=== PATIENT | female | born 1990 | race Caucasian/White ===

== ENCOUNTER 2016-10-05 13:11 | Emergency (ER) | payer OTHER, MEDICAID ==
[2016-10-05] MEDS ORDERED: NORMAL SALINE 1000 ML 1,000 ML IV ONE (13:57)
--- NOTE | 2016-10-05 13:57 | ER Document Report ---
ED Medical Screen (RME) - General Chief Complaint: Abdominal Cramping Stated Complaint: ABDOMINAL PAIN Time Seen by Provider: 10/05/16 13:54 Mode of Arrival: Ambulatory - pt is 14 weeks and recently had normal U/ S. Today developed sharp,stabbing lower abdominal pain Information source: Patient, Parent TRAVEL OUTSIDE OF THE U.S. IN LAST 30 DAYS: No - Related Data Allergies/Adverse Reactions: aspirin [Aspirin] Allergy (Severe, Verified 10/05/16 13:19) hydrocodone bitartrate [From Vicodin] Allergy (Verified 10/05/16 13:19) Past Medical History - Social History Family history: Reviewed & Not Pertinent Renal/ Medical History: Reports: Hx Kidney Stones. Denies: Hx Peritoneal Dialysis Musculoskeltal Medical History: Reports Hx Arthritis, Reports Hx Musculoskeletal Trauma Traumatic Medical History: Reports: Hx Fractures - Nose kneecap hand and finger Past Surgical History: Reports: Hx Adenoidectomy, Hx Oral Surgery - [place] teeth , Hx Tonsillectomy - Immunizations Hx Diphtheria, Pertussis, Tetanus Vaccination: No Physical Exam - Vital signs Vitals: Temp Pulse Resp BP Pulse Ox 97.9 F 100 18 139/75 H 100 10/05/16 13:16 10/05/16 13:16 10/05/16 13:16 10/05/16 13:16 10/05/16 13:16 Course - Vital Signs Vital signs: Temp Pulse Resp BP Pulse Ox 97.9 F 100 18 139/75 H 100 10/05/16 13:16 10/05/16 13:16 10/05/16 13:16 10/05/16 13:16 10/05/16 13:16
[2016-10-05 15:14] LABS: APPEARANCE,URINE SLIGHTLY-CLOUDY; BILIRUBIN,URINE NEGATIVE (NEGATIVE); CALCIUM OXALATE CRYSTALS,URINE MANY /HPF; GLUCOSE, URINE NEGATIVE (NEGATIVE); KETONES,URINE NEGATIVE (NEGATIVE); LEUKOCYTE ESTERASE,URINE NEGATIVE (NEGATIVE); NITRITE,URINE NEGATIVE (NEGATIVE); PROTEIN,URINE 30 mg/dL (NEGATIVE); URINE SPECIFIC GRAVITY 1.027
[2016-10-05 15:18] LABS: ABSOLUTE EOSINOPHILS # (AUTO) 0.1 10^3/uL (0.0-0.6); ABSOLUTE MONOCYTES (AUTO) 0.6 10^3/uL (0.1-1.4); ABSOLUTE NEUT (AUTO) 8.5 10^3/uL (1.7-8.2); BASOPHILS % (AUTO) 0.4 % (0-2); EOSINOPHILS % (AUTO) 0.6 % (0-6); HEMATOCRIT 40.8 % (36.0-47.0); HGB HCT DIFFERENCE 1.2; LYMPHOCYTES % (AUTO) 17.7 % (13-45); MEAN CORPUSCULAR HEMOGLOBIN 31.2 pg (27.0-33.4); MEAN CORPUSCULAR HGB CONC 34.3 g/dL (32.0-36.0); MEAN CORPUSCULAR VOLUME 91 fl (80-97); MONOCYTES % (AUTO) 5.6 % (3-13); RED BLOOD COUNT 4.47 10^6/uL (3.72-5.28); RED CELL DISTRIBUTION WIDTH 13.4 % (11.5-14.0); SEGMENTED NEUTROPHILS % (AUTO) 75.7 % (42-78); WHITE BLOOD COUNT 11.3 10^3/uL (4.0-10.5)
[2016-10-05 15:24] LABS: ALANINE AMINOTRANSFERASE 21 U/L (9-52); ALBUMIN 4.3 g/dL (3.5-5.0); ALKALINE PHOSPHATASE 63 U/L (38-126); ANION GAP 12 (5-19); ASPARTATE AMINO TRANSFERASE 22 U/L (14-36); BILIRUBIN,DIRECT 0.3 mg/dL (0.0-0.4); BILIRUBIN,TOTAL 0.6 mg/dL (0.2-1.3); BLOOD UREA NITROGEN 7 mg/dL (7-20); CALCIUM 9.8 mg/dL (8.4-10.2); CARBON DIOXIDE 24 mmol/L (22-30); CHLORIDE 105 mmol/L (98-107); CREATININE RESULT 0.47 mg/dL (0.52-1.25); GLUCOSE 83 mg/dL (75-110); SODIUM 141.4 mmol/L (137-145); TOTAL PROTEIN 7.6 g/dL (6.3-8.2)
--- NOTE | 2016-10-05 17:06 | ER Document Report ---
HPI - HPI Patient complains to provider of: Pelvic cramping Onset: This afternoon Onset/Duration: Gone Quality of pain: No pain Pain Level: Denies Context: Patient states that she had nausea and vomiting 1 episode this afternoon with lower pelvic cramping. Patient states that presently the cramping has resolved as well as the nausea. Patient is currently 14 weeks . Patient additionally reports that she finished Macrobid yesterday to treat the UTI. Patient denies any current urinary symptoms. Patient denies any vaginal bleeding or discharge Associated Symptoms: Nausea, Vomiting Exacerbated by: Denies Relieved by: Denies Similar symptoms previously: No Recently seen / treated by doctor: Yes - ROS ROS below otherwise negative: Yes Systems Reviewed and Negative: Yes All other systems reviewed and negative - CONSTITUTIONAL Constitutional: DENIES: Fever, Chills - NEURO Neurology: DENIES: Headache - CARDIOVASCULAR Cardiovascular: DENIES: Chest pain - GASTROINTESTINAL Gastrointestinal: REPORTS: Abdominal Pain - Resolved, Nausea, Patient vomiting. DENIES: Diarrhea - URINARY Urinary: DENIES: Dysuria, Urgency, Frequency - REPRODUCTIVE Reproductive: REPORTS: :. DENIES: Abnormal bleeding / discharge - MUSCULOSKELETAL Musculoskeletal: DENIES: Back Pain, Neck Pain - DERM Skin Color: Normal Skin Problems: None Past Medical History - General Information source: Patient, Parent - Social History Smoking Status: Never Smoker Frequency of alcohol use: None Drug Abuse: None Occupation: retail Lives with: Family Family History: Arthritis, CAD, COPD, CVA, DM, Hyperlipidemia, Hypertension, Malignancy Patient has suicidal ideation: No Patient has homicidal ideation: No - Past Medical History Cardiac Medical History: Reports: Other - orthopedic intolerance Renal/ Medical History: Reports: Hx Kidney Stones. Denies: Hx Peritoneal Dialysis Musculoskeltal Medical History: Reports Hx Arthritis, Reports Hx Musculoskeletal Trauma Traumatic Medical History: Reports: Hx Fractures - Nose kneecap hand and finger Past Surgical History: Reports: Hx Adenoidectomy, Hx Oral Surgery - [place] teeth , Hx Tonsillectomy - Immunizations Hx Diphtheria, Pertussis, Tetanus Vaccination: No Vertical Provider Document - CONSTITUTIONAL Agree With Documented VS: Yes General Appearance: WD/WN, No Apparent Distress - INFECTION CONTROL TRAVEL OUTSIDE OF THE [place].S. IN LAST 30 DAYS: No - HEENT HEENT: Atraumatic, Normocephalic - NECK Neck: Normal Inspection, Supple. negative: Lymphadenopathy-Left, Lymphadenopathy-Right - RESPIRATORY Respiratory: Breath Sounds Normal, No Respiratory Distress, Chest Non-Tender O2 Sat by Pulse Oximetry: 100 - CARDIOVASCULAR Cardiovascular: Regular Rate, Regular Rhythm, No Murmur - GI/ABDOMEN Gastrointestinal: Abdomen Soft, Abdomen Non-Tender, No Organomegaly - BACK Back: Normal Inspection. negative: CVA Tenderness-Right, CVA Tenderness-Left - MUSCULOSKELETAL/EXTREMETIES Musculoskeletal/Extremeties: MAEW, FROM - NEURO Level of Consciousness: Awake, Alert, Appropriate Motor/Sensory: No Motor Deficit - DERM Integumentary: Warm, Dry, No Rash Course - Re-evaluation Re-evalutation: 10/05/16 17:[address] Raymond regarding patient presentation and diagnostic test results. Agrees with plan to culture urine, does not recommend treating urine results with any antibiotic at this time. Patient denies any pain or nausea at this time. Discussed good return precautions with patient. Patient verbalized understanding and agrees with plan of care. - Vital Signs Vital signs: Temp Pulse Resp BP Pulse Ox 97.9 F 100 20 139/75 H 100 10/05/16 13:16 10/05/16 13:16 10/05/16 16:46 10/05/16 13:16 10/05/16 13:16 - Laboratory Result Diagrams: 10/05/16 14:35 10/05/16 14:35 Laboratory results interpreted by me: 10/05/16 10/05/16 10/05/16 14:00 14:35 14:35 WBC 11.3 H Absolute Neutrophils 8.5 H Creatinine 0.47 L Beta HCG, Quant 42500.00 H Urine Protein 30 H Urine Blood SMALL H Urine Urobilinogen 4.0 H 10/05/16 17:12 Labs- Entire Visit 10/05/16 10/05/16 10/05/16 14:00 14:35 14:35 WBC 11.3 H RBC 4.47 Hgb 14.0 Hct 40.8 MCV 91 MCH 31.2 MCHC 34.3 RDW 13.4 Plt Count 238 Seg Neutrophils % 75.7 Lymphocytes % 17.7 Monocytes % 5.6 Eosinophils % 0.6 Basophils % 0.4 Absolute Neutrophils 8.5 H Absolute Lymphocytes 2.0 Absolute Monocytes 0.6 Absolute Eosinophils 0.1 Absolute Basophils 0.0 Sodium 141.4 Potassium 4.0 Chloride 105 Carbon Dioxide 24 Anion Gap 12 BUN 7 Creatinine 0.47 L Est GFR ( Amer) > 60 Est GFR (Non-Af Amer) > 60 Glucose 83 Calcium 9.8 Total Bilirubin 0.6 Direct Bilirubin 0.3 Indirect Bilirubin Not Reportable Neonat Total Bilirubin Not Reportable AST 22 ALT 21 Alkaline Phosphatase 63 Total Protein 7.6 Albumin 4.3 Beta HCG, Quant 34776.00 H Total Beta HCG POSITIVE Urine Color YELLOW Urine Appearance SLIGHTLY-CLOUDY Urine pH 6.0 Ur Specific [place] 1.027 Urine Protein 30 H Urine Glucose (UA) NEGATIVE Urine Ketones NEGATIVE Urine Blood SMALL H Urine Nitrite NEGATIVE Urine Bilirubin NEGATIVE Urine Urobilinogen 4.0 H Ur Leukocyte Esterase NEGATIVE Urine WBC (Auto) 3 Urine RBC (Auto) 4 Urine Bacteria (Auto) TRACE Squamous Epi Cells Auto 1 Calcium Oxalate Cr Auto MANY Urine Mucus (Auto) MOD Urine Ascorbic Acid NEGATIVE 10/05/16 18:20 - Diagnostic Test Radiology reviewed: Reports reviewed Discharge - Discharge Clinical Impression: Intrauterine , pelvic cramping-resolved Condition: Stable Disposition: HOME, SELF-CARE Instructions: Pelvic Pain in ([facility]), Nausea or Vomiting, Nonspecific ( [facility]) Additional Instructions: Return immediately for any new or worsening symptoms Followup with your primary care provider, call tomorrow to make a followup appointment Increase oral fluids Take Benadryl [id number] to help with nausea symptoms Urine cultures are pending, we will call if you need any different treatment Follow-up with your MECHANICAL SERVICE REPRESENTATIVE for recheck on Friday Forms: Return to Work Referrals: CHARISMA VERA MD [Primary Care Provider] - 10/07/16
[2016-10-05 17:33] VITALS: BP 116/66
== END 2016-10-05 17:32 | disposition home or self-care (01) ==
LOC: ER 13:11
DX: O26.892 Other specified pregnancy related conditions, second trimester (principal); R10.2 Pelvic and perineal pain; O21.9 Vomiting of pregnancy, unspecified; Z3A.14 14 weeks gestation of pregnancy; Z87.440 Personal history of urinary (tract) infections; Z87.442 Personal history of urinary calculi
CPT/HCPCS: 99284; 36415; 87086; 84702; 85025; 80053; 81001; 76805; J7030

== ENCOUNTER 2016-11-18 16:39 | Emergency (ER) | payer OTHER, MEDICAID ==
[2016-11-18] MEDS ORDERED: ACETAMINOPHEN 325 MG TABLET PO ONE (18:16)
--- NOTE | 2016-11-18 18:18 | ER Document Report ---
ED Medical Screen (RME) - General Chief Complaint: Vaginal Pain Stated Complaint: VAGINAL PAIN Time Seen by Provider: 11/18/16 18:14 Notes: There is a 26-year-old female, , 20 weeks , presents with right groin pain into her vagina after her dogs began to fight and she fell on her right hip. She is having pain that is worse when she extends her hip and is now present when she is at rest. She denies leakage of fluid, vaginal bleeding , dysuria, LOC or flank pain. PE: Non-tender abdomen. Painful right hip extension. I have greeted and performed a rapid initial assessment of this patient. A comprehensive ED assessment and evaluation of the patient, analysis of test results and completion of the medical decision making process will be conducted by additional ED providers. TRAVEL OUTSIDE OF THE U.S. IN LAST 30 DAYS: No - Related Data Allergies/Adverse Reactions: aspirin [Aspirin] Allergy (Severe, Verified 11/18/16 16:43) hydrocodone bitartrate [From Vicodin] Allergy (Verified 11/18/16 16:43) Past Medical History - General Last Menstrual Period: 06/28/16 - Social History Family history: Reviewed & Not Pertinent Renal/ Medical History: Reports: Hx Kidney Stones. Denies: Hx Peritoneal Dialysis Musculoskeltal Medical History: Reports Hx Arthritis, Reports Hx Musculoskeletal Trauma Traumatic Medical History: Reports: Hx Fractures - Nose kneecap hand and finger Past Surgical History: Reports: Hx Adenoidectomy, Hx Oral Surgery - [place] teeth , Hx Tonsillectomy - Immunizations Hx Diphtheria, Pertussis, Tetanus Vaccination: No Physical Exam - Vital signs Vitals: Temp Pulse Resp BP Pulse Ox 98.6 F 99 20 128/75 H 99 11/18/16 16:43 11/18/16 16:43 11/18/16 16:43 11/18/16 16:43 11/18/16 16:43 Course - Vital Signs Vital signs: Temp Pulse Resp BP Pulse Ox 98.6 F 99 20 128/75 H 99 11/18/16 16:43 11/18/16 16:43 11/18/16 16:43 11/18/16 16:43 11/18/16 16:43
[2016-11-18 18:53] LABS: AMORPHOUS SEDIMENT,URINE TRACE /HPF; APPEARANCE,URINE CLOUDY; BILIRUBIN,URINE NEGATIVE (NEGATIVE); GLUCOSE, URINE NEGATIVE (NEGATIVE); KETONES,URINE NEGATIVE (NEGATIVE); LEUKOCYTE ESTERASE,URINE SMALL (NEGATIVE); NITRITE,URINE NEGATIVE (NEGATIVE); PROTEIN,URINE 30 mg/dL (NEGATIVE); URINE SPECIFIC GRAVITY 1.019
--- NOTE | 2016-11-18 20:09 | ER Document Report ---
ED General - General Chief Complaint: Vaginal Pain Stated Complaint: VAGINAL PAIN Time Seen by Provider: 11/18/16 18:14 Notes: Patient is a 26-year-old female, at 20 weeks gestation by first trimester ultrasound, the [facility] emergency department for chief complaint of pain in her right groin, hip, lower abdomen area. She states she slipped in the mud and landed on her right hip/thigh, she was trying to break up a dog fight. She denies vaginal bleeding, discharge, vomiting, focal numbness or weakness, incontinence. She is still feeling baby moving. She is on vitamins, follows with [facility]. TRAVEL OUTSIDE OF THE [place] IN LAST 30 DAYS: No - Related Data Allergies/Adverse Reactions: aspirin [Aspirin] Allergy (Severe, Verified 11/18/16 16:43) hydrocodone bitartrate [From Vicodin] Allergy (Verified 11/18/16 16:43) Past Medical History - General Information source: Patient Last Menstrual Period: 06/28/16 - Social History Smoking Status: Never Smoker Chew tobacco use (# tins/day): No Frequency of alcohol use: None Drug Abuse: None Lives with: Family Family History: Arthritis, CAD, COPD, CVA, DM, Hyperlipidemia, Hypertension, Malignancy Patient has suicidal ideation: No Patient has homicidal ideation: No Renal/ Medical History: Reports: Hx Kidney Stones. Denies: Hx Peritoneal Dialysis Musculoskeltal Medical History: Reports Hx Arthritis, Reports Hx Musculoskeletal Trauma Traumatic Medical History: Reports: Hx Fractures - Nose kneecap hand and finger Past Surgical History: Reports: Hx Adenoidectomy, Hx Oral Surgery - [place] teeth , Hx Tonsillectomy - Immunizations Hx Diphtheria, Pertussis, Tetanus Vaccination: No Review of Systems - Review of Systems Constitutional: No symptoms reported EENT: No symptoms reported Cardiovascular: No symptoms reported Respiratory: No symptoms reported Gastrointestinal: See HPI Genitourinary: See HPI Female Genitourinary: See HPI Musculoskeletal: See HPI Skin: No symptoms reported Hematologic/Lymphatic: No symptoms reported Neurological/Psychological: No symptoms reported Physical Exam - Vital signs Vitals: Temp Pulse Resp BP Pulse Ox 98.6 F 99 20 128/75 H 99 11/18/16 16:43 11/18/16 16:43 11/18/16 16:43 11/18/16 16:43 11/18/16 16:43 Interpretation: Normal - General General appearance: Appears well, Alert In distress: None - Patient is alert, calm, well-appearing - HEENT Head: Normocephalic, Atraumatic Eyes: Normal Pupils: PERRL - Respiratory Respiratory status: No respiratory distress Chest status: Nontender Breath sounds: Normal Chest palpation: Normal - Cardiovascular Rhythm: Regular Heart sounds: Normal auscultation Murmur: No - Abdominal Inspection: Normal Distension: No distension Bowel sounds: Normal Tenderness: Nontender Organomegaly: No organomegaly - Back Back: Normal, Nontender - Extremities General upper extremity: Normal inspection, Nontender, Normal color, Normal ROM , Normal temperature General lower extremity: Normal inspection, Nontender, Normal color, Normal ROM , Normal temperature, Normal weight bearing. No: Raquel's sign - Neurological Neuro grossly intact: Yes Cognition: Normal Orientation: AAOx4 Su Coma Scale Eye Opening: Spontaneous Su Coma Scale Verbal: Oriented Hannah Coma Scale Motor: Obeys Commands Su Coma Scale Total: 15 Speech: Normal Motor strength normal: LUE, RUE, LLE, RLE Sensory: Normal - Psychological Associated symptoms: Normal affect, Normal mood - Skin Skin Temperature: Warm Skin Moisture: Dry Skin Color: Normal Course - Re-evaluation Re-evalutation: Orifice generally unremarkable, very contaminated sample with large amount of squamous epithelials. No gross hematuria. Unremarkable. Sent for culture. Well-appearing on exam, has tenderness over the right anterior thigh with pain on hip extension, I appreciate any abdominal tenderness. Patient states she having occasional radiating pains along her right side. She denies chest pain. No flank pain. No concerning injuries noted at this time, however patient will be sent upstairs for clearance by COMMUNITY LIVING COACH after fall. Discussed with Dr. Raymond. Patient states agreement with this plan. - Vital Signs Vital signs: Temp Pulse Resp BP Pulse Ox 98.4 F 85 20 130/68 H 99 11/18/16 20:30 11/18/16 20:30 11/18/16 20:30 11/18/16 20:30 11/18/16 20:30 - Laboratory Laboratory results interpreted by me: 11/18/16 18:23 Urine Protein 30 H Urine Urobilinogen 4.0 H Ur Leukocyte Esterase SMALL H Discharge - Discharge Clinical Impression: Right groin pain, Right thigh pain Fall Qualifiers: Encounter type: initial encounter Qualified Code(s): W19.XXXA - Unspecified fall, initial encounter Qualifiers: Weeks of gestation: 20 weeks Qualified Code(s): Z3A.20 - 20 weeks gestation of Condition: Stable Disposition: HOME, SELF-CARE Additional Instructions: Your urine does not show concerning findings such as significant bleeding from your urinary tract. We have a culture pending. Your examination is most consistent with soft tissue injury to the right groin and your right thigh, you will likely be progressively sore from this for the next 2 days. Rest, apply ice to the groin/hip the first 24 hours, then heat. Take Tylenol for pain. Go directly upstairs to be evaluated by OBGYN. Referrals: CHARISMA VERA MD [Primary Care Provider] - Follow up as needed
[2016-11-18 21:19] VITALS: BP 130/68
== END 2016-11-18 20:34 | disposition home or self-care (01) ==
LOC: ER 16:39
DX: O26.892 Other specified pregnancy related conditions, second trimester (principal); R10.2 Pelvic and perineal pain; R10.30 Lower abdominal pain, unspecified; M79.651 Pain in right thigh; Z3A.20 20 weeks gestation of pregnancy; W01.10XA Fall on same level from slipping, tripping and stumbling with subsequent striking against unspecified object, initial encounter; Z88.6 Allergy status to analgesic agent; Z87.442 Personal history of urinary calculi
CPT/HCPCS: 81001; 87086; 99283

== ENCOUNTER 2016-11-18 20:37 | Outpatient (CLI) | payer OTHER, MEDICAID ==
[2016-11-18] MEDS ORDERED: HYDROXYZINE PAMOATE 50 MG CAPSULE ONE (21:32)
[2016-11-18] MEDS ORDERED: ACETAMINOPHEN 325 MG TABLET ONE (21:32)
== END 2016-11-18 21:45 | disposition home or self-care (01) ==
LOC: LC 20:37
PROVIDERS: ATTEND Obstetrics & Gynecology
PROC: 4A1HXCZ Monitoring of Products of Conception, Cardiac Rate, External Approach (ICD-10-PCS; principal; 2016-11-18)
DX: O26.892 Other specified pregnancy related conditions, second trimester (principal); R10.2 Pelvic and perineal pain; R10.9 Unspecified abdominal pain; Z3A.20 20 weeks gestation of pregnancy; W01.0XXA Fall on same level from slipping, tripping and stumbling without subsequent striking against object, initial encounter

== ENCOUNTER 2017-01-19 23:47 | Outpatient (CLI) | payer OTHER, MEDICAID ==
[2017-01-20 00:49] LABS: APPEARANCE,URINE CLEAR; BILIRUBIN,URINE NEGATIVE (NEGATIVE); GLUCOSE, URINE NEGATIVE (NEGATIVE); KETONES,URINE NEGATIVE (NEGATIVE); LEUKOCYTE ESTERASE,URINE NEGATIVE (NEGATIVE); NITRITE,URINE NEGATIVE (NEGATIVE); PROTEIN,URINE 100 mg/dL (NEGATIVE); URINE SPECIFIC GRAVITY 1.005; UROBILINOGEN,URINE NEGATIVE mg/dL (<2.0)
[2017-01-20 01:39] LABS: URINE BARBITURATES SCREEN NEGATIVE; URINE METHADONE SCREEN NEGATIVE; URINE OPIATES LOW NEGATIVE; URINE PHENCYCLIDINE SCREEN NEGATIVE
--- NOTE | 2017-01-20 03:00 | RADIOLOGY REPORT (SQ) ---
EXAM DESCRIPTION: U/S OB LIMITED COMPLETED DATE/TIME: 01/20/2017 2:04 am REASON FOR STUDY: FALL, placental status, status please . The patient is 29 weeks 3 days preg nant. COMPARISON: US OB 10/05/2016. TECHNIQUE: Limited transabdominal grayscale ultrasound for evaluation of specific requested obstetri brandon parameters. LIMITATIONS: None. FINDINGS: CERVICAL LENGTH: Not applicable. Greater than 20 weeks. Need transvaginal study if indicat ed. KEYSHAWN: 9.7 cm, clear. FHR: 155 beats per minute. PRESENTATION: Vertex. PLACENTA: Anterior. IMPRESSION: LIMITED OBSTETRICAL ULTRASOUND WITH MEASURED PARAMETERS DELINEATED ABOVE. Trimester of : Third trimester - 28 weeks to delivery. TECHNICAL DOCUMENTATION: JOB ID: [id number] 2010 [employer]- All Rights Reserved
== END 2017-01-20 03:18 | disposition home or self-care (01) ==
LOC: LC 23:47
PROVIDERS: ATTEND Obstetrics & Gynecology
PROC: 4A1HXCZ Monitoring of Products of Conception, Cardiac Rate, External Approach (ICD-10-PCS; principal; 2017-01-19)
DX: Z36 Encounter for antenatal screening of mother (principal); Z3A.29 29 weeks gestation of pregnancy; Z91.81 History of falling
CPT/HCPCS: 76815; 80307; 81001

== ENCOUNTER 2017-02-28 12:54 | Outpatient (CLI) | payer OTHER, MEDICAID ==
[2017-02-28 13:57] LABS: APPEARANCE,URINE CLEAR; BILIRUBIN,URINE NEGATIVE (NEGATIVE); GLUCOSE, URINE NEGATIVE (NEGATIVE); KETONES,URINE NEGATIVE (NEGATIVE); LEUKOCYTE ESTERASE,URINE NEGATIVE (NEGATIVE); NITRITE,URINE NEGATIVE (NEGATIVE); PROTEIN,URINE NEGATIVE (NEGATIVE); URINE SPECIFIC GRAVITY 1.005
--- NOTE | 2017-02-28 13:58 | Non Stress Test Report ---
Non Stress Test Datetime Report Generated by CPN: 02/28/2017 13:58 DEMOGRAPHIC EGA NST: 35.0 INDICATION Indication for Study: Ordered by Provider MONITORING Monitor Explained: Monitor Explained; Test Explained; Patient Verbalized Understanding Time on Monitor: 02/28/2017 13:19 Time off Monitor: 02/28/2017 13:56 NST Duration: 37 NST INTERVENTIONS NST Interventions: PO Hydration; Reposition Patient Physician Notified NST: J. Nielsen, CNM BABY A: [id number] BABY A Movement : Present Contraction Frequency : 0 FHR Baseline : 140 Accelerations : 15X15 Decelerations : None Variability : Moderate 6-25bpm NST Review: Meets Criteria for Reactive NST NST Review and Verified By : FRANKIE Camacho Results: Reactive NST REPORT Report Trigger: Send Report
[2017-02-28 14:04] LABS: URINE BARBITURATES SCREEN NEGATIVE; URINE METHADONE SCREEN NEGATIVE; URINE OPIATES LOW NEGATIVE; URINE PHENCYCLIDINE SCREEN NEGATIVE
== END 2017-02-28 14:12 | disposition home or self-care (01) ==
LOC: LC 12:54
PROVIDERS: ATTEND Obstetrics & Gynecology
PROC: 4A1HXCZ Monitoring of Products of Conception, Cardiac Rate, External Approach (ICD-10-PCS; principal; 2017-02-28)
DX: O47.03 False labor before 37 completed weeks of gestation, third trimester (principal); Z3A.35 35 weeks gestation of pregnancy
CPT/HCPCS: 59025; 80307; 81001

== ENCOUNTER 2017-03-18 13:35 | Outpatient (CLI) | payer OTHER, MEDICAID ==
[2017-03-18 14:14] LABS: AMNISURE (ROM) NEGATIVE (NEGATIVE)
[2017-03-18 14:20] LABS: APPEARANCE,URINE CLEAR; BILIRUBIN,URINE NEGATIVE (NEGATIVE); GLUCOSE, URINE NEGATIVE (NEGATIVE); KETONES,URINE NEGATIVE (NEGATIVE); LEUKOCYTE ESTERASE,URINE NEGATIVE (NEGATIVE); NITRITE,URINE NEGATIVE (NEGATIVE); PROTEIN,URINE NEGATIVE (NEGATIVE); URINE SPECIFIC GRAVITY 1.006
[2017-03-18 14:55] LABS: URINE BARBITURATES SCREEN NEGATIVE; URINE METHADONE SCREEN NEGATIVE; URINE OPIATES LOW NEGATIVE; URINE PHENCYCLIDINE SCREEN NEGATIVE
--- NOTE | 2017-03-18 15:02 | Non Stress Test Report ---
Non Stress Test Datetime Report Generated by CPN: 03/18/2017 15:01 DEMOGRAPHIC EGA NST: 37.4 INDICATION Indication for Study: Ordered by Provider MONITORING Monitor Explained: Monitor Explained; Test Explained; Patient Verbalized Understanding Time on Monitor: 03/18/2017 14:25 Time off Monitor: 03/18/2017 14:52 NST Duration: 27 NST INTERVENTIONS NST Interventions: Reposition Patient Physician Notified NST: PCharlie Schuler, CNM BABY A: [id number] BABY A Movement : Present Contraction Frequency : none FHR Baseline : 145 Accelerations : 15X15 Decelerations : None Variability : Moderate 6-25bpm NST Review: Meets Criteria for Reactive NST NST Review and Verified By : FRANKIE Camacho Results: Reactive NST REPORT Report Trigger: Send Report
== END 2017-03-18 15:00 | disposition home or self-care (01) ==
LOC: LC 13:35
PROVIDERS: ATTEND Obstetrics & Gynecology
PROC: 4A1HXCZ Monitoring of Products of Conception, Cardiac Rate, External Approach (ICD-10-PCS; principal; 2017-03-18)
DX: O47.1 False labor at or after 37 completed weeks of gestation (principal); Z3A.37 37 weeks gestation of pregnancy
CPT/HCPCS: 59025; 80307; 81001; 84112

== ENCOUNTER 2017-04-05 02:24 | Inpatient (IN) | payer OTHER, MEDICAID ==
[2017-04-05 03:02] LABS: APPEARANCE,URINE TURBID; BILIRUBIN,URINE NEGATIVE (NEGATIVE); GLUCOSE, URINE NEGATIVE (NEGATIVE); KETONES,URINE NEGATIVE (NEGATIVE); LEUKOCYTE ESTERASE,URINE MODERATE (NEGATIVE); NITRITE,URINE NEGATIVE (NEGATIVE); PROTEIN,URINE 100 mg/dL (NEGATIVE); URINE SPECIFIC GRAVITY 1.011
[2017-04-05 03:04] LABS: AMNISURE (ROM) POSITIVE (NEGATIVE)
[2017-04-05 03:36] LABS: URINE BARBITURATES SCREEN NEGATIVE; URINE METHADONE SCREEN NEGATIVE; URINE OPIATES LOW NEGATIVE; URINE PHENCYCLIDINE SCREEN NEGATIVE
[2017-04-05 03:57] LABS: ABSOLUTE EOSINOPHILS # (AUTO) 0.1 10^3/uL (0.0-0.6); ABSOLUTE LYMPHOCYTES (AUTO) 1.8 10^3/uL (0.5-4.7); ABSOLUTE MONOCYTES (AUTO) 0.9 10^3/uL (0.1-1.4); BASOPHILS % (AUTO) 0.4 % (0-2); EOSINOPHILS % (AUTO) 0.9 % (0-6); HEMATOCRIT 33.8 % (36.0-47.0); HEMOGLOBIN 11.6 g/dL (12.0-15.5); MEAN CORPUSCULAR HEMOGLOBIN 30.6 pg (27.0-33.4); MEAN CORPUSCULAR HGB CONC 34.5 g/dL (32.0-36.0); MEAN CORPUSCULAR VOLUME 89 fl (80-97); MONOCYTES % (AUTO) 7.3 % (3-13); RED BLOOD COUNT 3.81 10^6/uL (3.72-5.28); RED CELL DISTRIBUTION WIDTH 12.8 % (11.5-14.0); SEGMENTED NEUTROPHILS % (AUTO) 76.4 % (42-78); WHITE BLOOD COUNT 11.7 10^3/uL (4.0-10.5)
[2017-04-05] MEDS ORDERED: OXYTOCIN/NORMAL SALINE 20 UNIT/1,000 ML RTUINJ IV PRN ×2 (04:08→19:28)
[2017-04-05] MEDS ORDERED: OXYTOCIN/NORMAL SALINE 20 UNIT/1,000 ML RTUINJ ONE ×2 (04:09→16:06)
[2017-04-05] MEDS: RINGERS SOLUTION,LACTATED 1,000 ML IV PRN ×2 (04:42→06:43)
[2017-04-05] MEDS ORDERED: PROMETHAZINE HCL INJ 25 MG/1 ML VIAL ONE ×2 (06:24→08:38)
[2017-04-05] MEDS ORDERED: NALBUPHINE HCL INJ 10 MG/1 ML AMPULE ONE ×2 (06:24→08:38)
[2017-04-05] MEDS ORDERED: PROMETHAZINE HCL INJ 25 MG/1 ML VIAL IV ONE (06:25)
[2017-04-05] MEDS ORDERED: NALBUPHINE HCL INJ 10 MG/1 ML AMPULE INJ ONE (06:25)
--- NOTE | 2017-04-05 08:48 | L&D Progress Notes ---
PROGRESS NOTES Datetime Report Generated by CPN: 04/05/2017 08:48 PROGRESS NOTE Impression: Normal Progression of Labor; Reassuring Heart Rate; Reactive Non Stress Test; Rupture of Membranes Procedures: Sterile Vag Exam Plan: Continue Present Management Plan Other: IV analgesia Vital Signs : Reviewed; Within Normal Limits Vital Signs Comments: Intermittent elevated BP, likely d/t pain Comment: FHR baseline 135, moderate variability, cat I, cephalic, external monitoring. VAGINAL EXAM Dilatation: 3 Effacement: 90 Station: -1 Contractions: q 1-4 min MEMBRANES Membranes: Ruptured FETUS A FHR - Baseline: 135 Monitoring: External US Variability: Moderate 6-25bpm Accelerations: 15X15 Decelerations: None FHR Category: Category I SIGNATURE SIGNATURE: [id number] SIGNATURE: [id number] SIGNATURE: [id number] SIGNATURE: [id number] Signature: with User ID: [email or web address]
[2017-04-05] MEDS ORDERED: FENTANYL CITRATE INJ/PF 100 MCG/2 ML AMPUL ONE (11:12)
[2017-04-05] MEDS ORDERED: EPHEDRINE SULFATE INJ 50 MG/1 ML AMPULE ONE (11:12)
[2017-04-05] MEDS ORDERED: FENTANYL/BUPIVACAINE/NS/PF 200 MCG/100 ML RTUINJ EPI ONE (11:13)
[2017-04-05] MEDS ORDERED: BUPIVACAINE HCL 0.25 % INJ/PF (2.5 MG/1 ML) 30 ML VIAL ONE (11:13)
[2017-04-05] MEDS ORDERED: MISOPROSTOL 0.2 MG TABLET ONE (16:05)
[2017-04-05] MEDS ORDERED: LIDOCAINE 1% INJ-PF (10 MG/ML) 30 ML SDV ONE (16:06)
--- NOTE | 2017-04-05 17:55 | L&D Progress Notes ---
PROGRESS NOTES Datetime Report Generated by CPN: 04/05/2017 17:55 PROGRESS NOTE Impression: Normal Progression of Labor; Reassuring Heart Rate; Reactive Non Stress Test; Rupture of Membranes Procedures: Sterile Vag Exam Plan: Continue Present Management Plan Other: IV analgesia Vital Signs : Reviewed; Within Normal Limits Vital Signs Comments: Intermittent elevated BP, likely d/t pain Comment: FHR baseline 165, moderate variability, cat I, cephalic, external monitoring. VAGINAL EXAM Dilatation: 10 Effacement: 100 Station: 1 Contractions: q 1-2 min MEMBRANES Membranes: Ruptured FETUS A FHR - Baseline: 165 Monitoring: External US Variability: Moderate 6-25bpm Accelerations: 15X15 Decelerations: None FHR Category: Category I FETUS C SIGNATURE: [id number];[id number] Signature: with User ID: [email or web address]
[2017-04-05] MEDS ORDERED: DIBUCAINE 1% OINTMENT 28 GM TP PRN (19:28)
[2017-04-05] MEDS ORDERED: MEASLES,MUMPS&RUBELLA VACC/PF 0.5 ML VIAL SUBCUT PRN (19:28)
[2017-04-05] MEDS ORDERED: ZOLPIDEM TARTRATE 5 MG TABLET PO PRN (19:28)
[2017-04-05] MEDS ORDERED: ACETAMINOPHEN WITH CODEINE #3 TABLET PO PRN (19:28)
[2017-04-05] MEDS ORDERED: DIPH/PERTUSS(ACELL)/TETANUS VAC/PF 0.5 ML SYR (>=10YO) IM PRN (19:28)
[2017-04-05] MEDS ORDERED: PROMETHAZINE HCL 25 MG TABLET PO PRN (19:32)
[2017-04-05] MEDS ORDERED: ONDANSETRON HCL 8 MG TABLET PO PRN (19:32)
[2017-04-05] MEDS ORDERED: DIPHENHYDRAMINE HCL 25 MG CAPSULE PO PRN (19:33)
[2017-04-05] MEDS ORDERED: IBUPROFEN 800 MG TABLET ONE (20:53)
[2017-04-05] MEDS: FAMOTIDINE 20 MG TABLET PO PRN (22:02)
[2017-04-05] MEDS: IBUPROFEN 800 MG TABLET PO SCH (22:03)
[2017-04-05] MEDS: BENZOCAINE/MENTHOL AEROSOL SPRAY 56 ML TOP PRN (22:04)
[2017-04-05] MEDS: ACETAMINOPHEN WITH CODEINE #3 TABLET PO PRN (23:21)
--- NOTE | 2017-04-06 05:35 | Delivery Summary ---
Del Sum A-C Datetime Report Generated by CPN: 04/06/2017 05:35 DELIVERY PERSONNEL DELIVERY PERSONNEL: [id number] Delivery Doctor:: Faisal Cortez MD Labor and Delivery Nurse:: GEOVANNI Gomez Nursery Nurse:: FRANKIE Freeman Tech/SAND SCREENER: Krzysztof Mendoza, ALLIGATOR HUNTER MATERNAL INFORMATION Delivery Anesthesia: Epidural Medications After Delivery: Pitocin Bolus-Please Comment; Pitocin Drip 20 Units/1000ml NSS Estimated Blood Loss (ml): 100 Maternal Complications: None Provider Comments: Pt C_P. Head delivered OA. Nuchal x 1 reduced. Anterior and posterior shoulder delivered followed by rest of body. Baby placed on mom's abdomen. After 1min, cord clamped x 2 and cut. Placenta delivered intact with 3VC. Lacs repaired as above. LABOR SUMMARY EDC: 04/04/2017 00:00 No. Babies in Womb: 1 Attempted: No Labor Anesthesia: IV Sedation LABOR INFORMATION Reason for Induction: Premature Rupture of Membranes Onset of Labor: 04/05/2017 08:40 Complete Dilatation: 04/05/2017 16:30 Oxytocin: Induction Group B Beta Strep: negative Antibiotics # of Doses: 0 Antibiotics Time of Last Dose: n/a Name of Antibiotic Given: n/a Steroids Given: None Reason Steroids Not Administered: Not Applicable MEMBRANES Membranes Rupture Method: Spontaneous Rupture of Membranes: 04/05/2017 02:00 Length of Rupture (hr): 16.63 Amniotic Fluid Color: Clear Amniotic Fluid Amount: Moderate Amniotic Fluid Odor: Normal STAGES OF LABOR Stage 1 hr: 7 Stage 1 min: 50 Stage 2 hr: 2 Stage 2 min: 8 Stage 3 hr: 0 Stage 3 min: 5 Total Time in Labor hr: 10 Total Time in Labor min: 3 VAGINAL DELIVERY Episiotomy: None Laceration #1: Perineal Laceration Extension #1: Second Degree Other Laceration: Right labial Laceration Repair: Yes Laceration Repair Note: 2nd degree perineal lac repaired with 2.0 Vicryl in running locked fashion and 3.0 Vicryl in interrupted fashion. Sponge Count Correct: Yes Sharps Count Correct: Yes CSECTION DELIVERY Primary Indication: N/A Secondary Indication: N/A BABY A INFORMATION Delivery Date/Time: 04/05/2017 18:38 Method of Delivery: Vaginal Born in Route : No : N/A Forceps: N/A Vacuum Extraction: N/A Shoulder Dystocia : No PRESENTATION/POSITION BABY A Presentation: Cephalic Cephalic Presentation: Face Vertex Position: Left Occipital Anterior Breech Presentation: N/A PLACENTA INFORMATION BABY A Placenta Delivery Time : 04/05/2017 18:43 Placenta Method of Delivery: Spontaneous Placenta Status: Delivered SCORES BABY A Heart Rate 1 min: >100 bpm Resp Effort 1 min: Good Cry Reflex Irritability 1 min: Cough or Sneeze or Pulls Away Muscle Tone 1 min: Active Motion Color 1 min: Body [place], Extremities Blue Resuscitation Effort 1 min: N/A SCORE 1 MIN: 9 Heart Rate 5 min: >100 bpm Resp Effort 5 min: Good Cry Reflex Irritability 5 min: Cough or Sneeze or Pulls Away Muscle Tone 5 min: Active Motion Color 5 min: Body [place], Extremities Blue SCORE 5 MIN: 9 INFORMATION BABY A Gestational Age at Delivery: 40.1 Gestational Status: Full Term- 39- 40.6 Weeks Outcome : Liveborn Infant Condition : Stable Infant Sex: Male IDENTIFICATION BABY A Verification Date/Time: 04/05/2017 19:37 ID Band Number: [id number] Mother's Name Verified: Yes Infant RN Verifying : RCharlie Nievesmarianela, RN/ CCharlie Turner RN WEIGHT/LENGTH BABY A Birthweight (gm): 4430 Infant Weight (lb): 9 Infant Weight (oz): 12 Length (in): 21.25 Infant Length (cm): 53.98 CORD INFORMATION BABY A No. Cord Vessels: 3 Nuchal Cord : N/A Cord Blood Taken: Yes-For Eval (Mom's Blood Type - or O+) Suction: None ASSESSMENT BABY A Infant Complications: Meconium Physical Findings at Delivery: Molding of the Head Infant Respirations: Appears Normal Skin to Skin: Yes Puller Through/ALS Called : No Care By: S. Jingon Transferred To: Remains with Mother BABY B INFORMATION : N/A SIGNATURES Signature: with User ID: [email or web address]
[2017-04-06] MEDS: IBUPROFEN 800 MG TABLET PO SCH ×3 (06:37→21:33)
[2017-04-06] MEDS: ACETAMINOPHEN WITH CODEINE #3 TABLET PO PRN ×2 (07:36→16:00)
[2017-04-06 07:47] LABS: HEMATOCRIT 26.5 % (36.0-47.0); HGB HCT DIFFERENCE 1.1; MEAN CORPUSCULAR HEMOGLOBIN 30.9 pg (27.0-33.4); MEAN CORPUSCULAR HGB CONC 34.9 g/dL (32.0-36.0); MEAN CORPUSCULAR VOLUME 89 fl (80-97); RED BLOOD COUNT 2.99 10^6/uL (3.72-5.28); RED CELL DISTRIBUTION WIDTH 13.4 % (11.5-14.0); WHITE BLOOD COUNT 15.8 10^3/uL (4.0-10.5)
[2017-04-06 07:52] LABS: HEMOGLOBIN 9.2 g/dL (12.0-15.5)
--- NOTE | 2017-04-06 08:56 | PDOC PROGRESS REPORT ---
Subjective-OB Subjective: Post Delivery Day: 1 26 year old. Denies any needs at this time, states lochia is stable, pain well controlled, voiding without difficulty. Physical Exam (OB) Vital Signs: Temp Pulse Resp BP Pulse Ox 98.5 F 88 16 128/83 H 99 04/06/17 08:04 04/06/17 08:04 04/06/17 08:04 04/06/17 08:04 04/06/17 08:04 Intake & Output 04/05/17 04/06/17 04/07/17 06:59 06:59 06:59 Weight 111 kg - Lochia Lochia Amount: Scant < 10 ml Lochia Color: Rubra/Red - Abdomen Description: Tender, Soft, Round Hernia Present: No Fundal Description: Firm, Midline Fundal Height: u/u - u/2 Objective-Diagnostic Laboratory: 04/06/17 06:51 04/06/17 06:51 WBC 15.8 H RBC 2.99 L Hgb 9.2 L D Hct 26.5 L MCV 89 MCH 30.9 MCHC 34.9 RDW 13.4 Plt Count 163 Assessment and Plan(PN) - Assessment and Plan (1) Vaginal delivery Is this a current diagnosis for this admission?: Yes Plan: routine pp care (2) Acute blood loss anemia Is this a current diagnosis for this admission?: Yes Plan: ferrous sulfate increase dietary iron - Time Spent with Patient Time with patient: Less than 15 minutes Critical Time spent with patient: Less than 15 minutes Medications reviewed and adjusted accordingly: Yes - Disposition Anticipated Discharge: Home Within: within 24 hours
[2017-04-06] MEDS: PRENATAL VITAMIN W DHA CAPSULE PO SCH (09:05)
[2017-04-06] MEDS: DOCUSATE SODIUM 100 MG CAPSULE PO SCH ×2 (09:05→17:01)
[2017-04-06] MEDS: FERROUS SULFATE 325 MG TABLET PO SCH ×2 (09:05→17:01)
[2017-04-06] MEDS: SENNOSIDES/DOCUSATE 8.6-50 MG 1 EACH TABLET PO SCH (09:06)
[2017-04-06] MEDS: FAMOTIDINE 20 MG TABLET PO PRN ×2 (09:08→21:34)
[2017-04-06] MEDS: BENZOCAINE/MENTHOL AEROSOL SPRAY 56 ML TOP PRN (16:01)
[2017-04-07] MEDS: ACETAMINOPHEN WITH CODEINE #3 TABLET PO PRN (03:55)
[2017-04-07] MEDS: IBUPROFEN 800 MG TABLET PO SCH (05:02)
[2017-04-07] MEDS: DOCUSATE SODIUM 100 MG CAPSULE PO SCH (09:19)
[2017-04-07] MEDS: FERROUS SULFATE 325 MG TABLET PO SCH (09:19)
[2017-04-07] MEDS: SENNOSIDES/DOCUSATE 8.6-50 MG 1 EACH TABLET PO SCH (09:20)
[2017-04-07] MEDS: PRENATAL VITAMIN W DHA CAPSULE PO SCH (09:20)
[2017-04-07] MEDS: FAMOTIDINE 20 MG TABLET PO PRN (09:21)
[2017-04-07 12:56] VITALS: BP 148/79
[2017-04-07 14:13] LABS: ABSOLUTE BASOPHILS # (AUTO) 0.1 10^3/uL (0.0-0.2); ABSOLUTE EOSINOPHILS # (AUTO) 0.1 10^3/uL (0.0-0.6); ABSOLUTE LYMPHOCYTES (AUTO) 1.7 10^3/uL (0.5-4.7); ABSOLUTE MONOCYTES (AUTO) 0.7 10^3/uL (0.1-1.4); ABSOLUTE NEUT (AUTO) 8.5 10^3/uL (1.7-8.2); BASOPHILS % (AUTO) 0.6 % (0-2); EOSINOPHILS % (AUTO) 1.2 % (0-6); HEMATOCRIT 27.3 % (36.0-47.0); HEMOGLOBIN 9.4 g/dL (12.0-15.5); HGB HCT DIFFERENCE 0.9; LYMPHOCYTES % (AUTO) 15.4 % (13-45); MEAN CORPUSCULAR HEMOGLOBIN 30.9 pg (27.0-33.4); MEAN CORPUSCULAR HGB CONC 34.5 g/dL (32.0-36.0); MEAN CORPUSCULAR VOLUME 90 fl (80-97); MONOCYTES % (AUTO) 5.9 % (3-13); RED BLOOD COUNT 3.04 10^6/uL (3.72-5.28); RED CELL DISTRIBUTION WIDTH 13.2 % (11.5-14.0); SEGMENTED NEUTROPHILS % (AUTO) 76.9 % (42-78)
[2017-04-07 14:34] LABS: ALANINE AMINOTRANSFERASE 32 U/L (9-52); ALBUMIN 2.8 g/dL (3.5-5.0); ALKALINE PHOSPHATASE 115 U/L (38-126); ANION GAP 9 (5-19); ASPARTATE AMINO TRANSFERASE 28 U/L (14-36); BILIRUBIN,DIRECT 0.3 mg/dL (0.0-0.4); BILIRUBIN,TOTAL 0.3 mg/dL (0.2-1.3); BLOOD UREA NITROGEN 7 mg/dL (7-20); CALCIUM 8.8 mg/dL (8.4-10.2); CARBON DIOXIDE 26 mmol/L (22-30); CHLORIDE 110 mmol/L (98-107); CREATININE RESULT 0.54 mg/dL (0.52-1.25); GLUCOSE 75 mg/dL (75-110); LDH 545 U/L (313-618); POTASSIUM 3.3 mmol/L (3.6-5.0); SODIUM 145.2 mmol/L (137-145); TOTAL PROTEIN 5.2 g/dL (6.3-8.2); URIC ACID 4.7 mg/dL (2.5-6.2)
--- NOTE | 2017-04-07 14:42 | PDOC DISCHARGE SUMMARY ---
Final Diagnosis Discharge Date: 04/07/17 - mild range bps without other symptoms today. PIH labs today and warning s/s rev'd. Understands s/s to return to hospital or clinic prior to next scheduled appt. - Final Diagnosis (1) Vaginal delivery Is this a current diagnosis for this admission?: Yes (2) Acute blood loss anemia Is this a current diagnosis for this admission?: Yes (3) Hypertension, condition or complication Is this a current diagnosis for this admission?: Yes Discharge Data - Discharge Medication Home Medications: Vit Calc,Iron,Folic [ Vitamins] 1 each PO DAILY 12/27/15 Docusate Sodium [Colace 100 mg Capsule] 100 mg PO BID #60 capsule 04/07/17 Ferrous Sulfate [Feosol 325 mg Tablet] 325 mg PO BID #60 tablet 04/07/17 Ibuprofen [Motrin 800 mg Tablet] 800 mg PO Q8HP PRN #30 tablet 04/07/17 Reason(s) for Admission: PROM Procedures: NST, Ultrasound Intrapartum Procedure(s): Spontaneous Vaginal Delivery Complication(s): Laceration-Perineal, Laceration-Labial Laceration-Degree: 2nd - Diagnosis Test Laboratory: Temp Pulse Resp BP Pulse Ox 97.8 F 81 17 148/79 H 100 04/07/17 07:35 04/07/17 07:35 04/07/17 07:35 04/07/17 12:56 04/07/17 07:35 04/05/17 04/05/17 04/06/17 02:34 03:45 06:51 RBC 3.81 2.99 L Hgb 11.6 L 9.2 L D Hct 33.8 L 26.5 L Urine Opiates Screen NEGATIVE - Discharge information/Instructions Discharge Activity: Activity As Tolerated, Balance Activity w/Rest, No Lifting Over 10 Pounds, Pelvic Rest, Slowly Increase Activity, No tub bath Discharge Diet: As Tolerated, Regular Disposition: HOME, SELF-CARE Follow up with: [facility] in: 2, Days - blood pressure check
--- NOTE | 2017-04-21 13:37 | Admission Physical ---
Datetime Report Generated by CPN: 04/21/2017 13:36 CURRENT ADMISSION Chief Complaint: Uterine Contractions Indication for Induction: Not Applicable Indication for Induction: Term, Intrauterine ; Active Labor Admit Plan: Admit to Unit; Initiate Labor Protocol ALLERGIES Medication Allergies: Yes Medication Allergies: hydrocodone bitartrate (04/05/2017); aspirin/SV (04/05/2017) Medication Allergies: hydrocodone bitartrate (03/18/2017); aspirin/SV (03/18/2017) Medication Allergies: hydrocodone bitartrate (01/20/2017); aspirin/SV (01/20/2017) Medication Allergies: hydrocodone bitartrate (11/18/2016); aspirin/SV (11/18/2016) Latex: No Latex Allergies Food Allergies: No OBSTETRICAL HISTORY EDC: 04/04/2017 00:00 : 2 Para: 0 Term: 0 : 0 SAB: 1 IAB: 0 Ectopic: 0 Livin Cesareans: 0 VBACs: 0 Multiple Births: 0 Gestational Diabetes: No Rh Sensitization: No Incompetent Cervix: No XAVIER: No Infertility: No ART Treatment: No Uterine Anomaly: No IUGR: No Hx Previous C/S: No Macrosomia: No Hx Loss/Stillborn: No PIH: No Hx : No Placenta Previa/Abruption: No Depression/PP Depression: No PTL/PROM: No Post Hemorrhage: No Current Procedures: Ultrasound Obstetrical History Comments: G1 SAB G2 current SEE RECORDS Alcohol: No Marijuana : No Cocaine: No Other Illicit Drugs: No Cigarettes: Never Smoker. 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: No Heart Disease: No Hosp/Surgery: Yes Autoimmune Disorder: No Anesthetic Complications: No Kidney Disease: No Abnormal Pap Smear: No Neuro/Epilepsy: No Psychiatric Disorders: No Other Medical Diseases: No Hepatitis/Liver Disease: No Significant Family History: No Varicosities/Phlebitis: No Trauma/Violence : No Thyroid Dysfunction: No Medical History Comments: tonsils and adenoids (age 4) INFECTIOUS HISTORY Gonorrhea: No Genital Herpes: No Chlamydia: No Tuberculosis: No Syphilis: No Hepatitis: No HIV/AIDS Exposure: No Rash or Viral Illness: No HPV: No PHYSICAL EXAM General: Normal HEENT: Normal Neurologic: Normal Thyroid: Normal Heart: Normal Lungs: Normal Breast: Deferred Back: Normal Abdomen: Normal Genitourinary Exam: Normal Extremities: Normal DTRs: Normal Pelvic Type: Adequate VAGINAL EXAM Dilatation: 10 Dilatation: 3 Effacement: 100 Effacement: 90 Station: 1 Station: -1 Contraction Comments: q 1-2 min Contraction Comments: q 1-4 min MEMBRANES Membranes: Ruptured Membranes: Ruptured FETUS A EGA: 40.1 Monitoring: External US PLANS FOR LABOR AND DELIVERY Labor and Delivery: None Pain Management: Epidural Feeding Preference: Both Benefit of Breast Feed Discussed: Yes Circumcision: Yes INFORMED CONSENT Signature: with User ID: [email or web address]
== END 2017-04-07 15:45 | disposition home or self-care (01) | DRG 774 ==
LOC: LC 02:24 → LR 03:18 → 2S 21:10
PROVIDERS: ADMIT Obstetrics & Gynecology Gynecology; ATTEND Obstetrics & Gynecology Gynecology
PROC: 10E0XZZ Delivery of Products of Conception, External Approach (ICD-10-PCS; principal; 2017-04-05)
PROC: 0KQM0ZZ Repair Perineum Muscle, Open Approach (ICD-10-PCS; 2017-04-05)
PROC: 3E033VJ Introduction of Other Hormone into Peripheral Vein, Percutaneous Approach (ICD-10-PCS; 2017-04-05)
PROC: 4A1HXCZ Monitoring of Products of Conception, Cardiac Rate, External Approach (ICD-10-PCS; 2017-04-05)
DX: O69.81X0 Labor and delivery complicated by cord around neck, without compression, not applicable or unspecified (principal); O16.5 Unspecified maternal hypertension, complicating the puerperium; D62 Acute posthemorrhagic anemia; O99.02 Anemia complicating childbirth; O70.1 Second degree perineal laceration during delivery; O32.3XX0 Maternal care for face, brow and chin presentation, not applicable or unspecified; Z88.6 Allergy status to analgesic agent; Z3A.40 40 weeks gestation of pregnancy; Z37.0 Single live birth
CPT/HCPCS: 36415; 80053; 80307; 81005; 83615; 84112; 84550; 85025; 85027; 86592; 86850; 86900; 86901; J2300; J2550; J2590; J3010; J3490

== ENCOUNTER 2017-07-27 12:23 | Emergency (ER) | payer OTHER, MEDICAID ==
--- NOTE | 2017-07-27 13:03 | ER Document Report ---
ED Medical Screen (RME) - General Chief Complaint: Flank Pain Stated Complaint: ADOMINAL PAIN Time Seen by Provider: 07/27/17 12:52 Mode of Arrival: Ambulatory Information source: Patient Notes: 26-year-old female with a history of kidney stones who presents to the emergency room with a 1 day history of right flank pain radiating into the right groin which is very consistent with previous kidney stones in the past. Patient states she is always been able to pass some. She denies any fever, chills, nausea or vomiting. TRAVEL OUTSIDE OF THE [place] IN LAST 30 DAYS: No - HPI Onset: Just prior to arrival Onset/Duration: Gradual Quality of pain: Dull Severity: Moderate Pain Level: 2 Associated Symptoms: Nausea. denies: Fever, Shortness of breath Exacerbated by: Movement Relieved by: Denies Similar symptoms previously: Yes Recently seen / treated by doctor: Yes - Related Data Smoking: Non-smoker Frequency of alcohol use: None Drug Abuse: None Allergies/Adverse Reactions: aspirin [Aspirin] Allergy (Severe, Verified 07/27/17 12:28) hydrocodone bitartrate [From Vicodin] Allergy (Verified 07/27/17 12:28) Past Medical History - General Information source: Patient - Social History Cigarette use (# per day): No Chew tobacco use (# tins/day): No Frequency of alcohol use: None Drug Abuse: None Lives with: Family Family history: Reviewed & Not Pertinent Renal/ Medical History: Reports: Hx Kidney Stones. Denies: Hx Peritoneal Dialysis Musculoskeltal Medical History: Reports Hx Arthritis, Reports Hx Musculoskeletal Trauma Traumatic Medical History: Reports: Hx Fractures - Nose kneecap hand and finger Past Surgical History: Reports: Hx Adenoidectomy, Hx Oral Surgery - [place] teeth , Hx Tonsillectomy - Immunizations Hx Diphtheria, Pertussis, Tetanus Vaccination: No History of Influenza Vaccine for 02/2017 - 07/2017 Season: Yes Review of Systems - Review of Systems Notes: Review of systems: Constitutional: Denies fever, chills. EENT: Denies ear pain, sinus tenderness, throat pain, throat swelling. Cardiovascular: Denies chest pain, palpitations, dyspnea or edema. Respiratory: Denies wheezing, cough, hemoptysis. Abdomen: Denies abdominal pain, nausea, vomiting, diarrhea. Denies BRBPR or melena. Patient states she has a good appetite. Genitourinary: Denies dysuria, pyuria. Denies vaginal discharge Musculoskeletal: Right flank pain (similar to previous stones in the past). Neurologic: Denies headache, photophobia, neck stiffness, weakness. Denies loss of bowel or bladder function. Denies saddle anesthesia. Skin: Denies rash, lesions. Physical Exam - Vital signs Vitals: Temp Pulse Resp BP Pulse Ox 98.3 F 85 16 130/70 H 98 07/27/17 12:33 07/27/17 12:07/27/17 12:07/27/17 12:07/27/17 12:33 Notes: Physical exam: GENERAL: 86-year-old female, alert and oriented 3, no acute distress HEAD: Atraumatic, normocephalic. EYES: Pupils equal round and reactive to light, extraocular movements intact, sclera anicteric, conjunctiva are normal. ENT: TMs normal, nares patent, oropharynx clear without exudates. Moist mucous membranes. NECK: Normal range of motion, supple without obvious mass or JVD. LUNGS: Breath sounds clear to auscultation bilaterally and equal. No wheezes rales or rhonchi. HEART: Regular rate and rhythm without murmurs, rubs or gallops. Back: Mild right CVA tenderness ABDOMEN: Soft, normoactive bowel sounds. No tenderness to palpation. No guarding, no rebound. No masses appreciated. EXTREMITIES: Normal range of motion, no pitting or edema. No clubbing or cyanosis. NEUROLOGICAL: Cranial nerves II through XII grossly intact. Normal speech, moving all extremities. PSYCH: Normal mood, normal affect. SKIN: Warm, Dry, normal turgor, no rashes or lesions noted. Course - Vital Signs Vital signs: Temp Pulse Resp BP Pulse Ox 98.3 F 85 16 130/70 H 98 07/27/17 12:33 07/27/17 12:33 07/27/17 12:07/27/17 12:07/27/17 12:33 - Laboratory Laboratory results interpreted by me: 07/27/17 13:25 Urine Blood MODERATE H Urine Urobilinogen 2.0 H Doctor's Discharge - Discharge Clinical Impression: Flank pain Condition: Stable Disposition: HOME, SELF-CARE Additional Instructions: Thank you for choosing [facility] for your care. The examination and treatment you have received in the Emergency Department today has been rendered on an emergency basis only and is not intended to be a substitute for complete medical care. You should contact your doctor as it is important that she/he examine you for any new or remaining problems. If given a copy of any lab tests or radiology reports, please bring them with you when you see your physician. If your problem worsens or new symptoms appear and you are unable to arrange prompt follow-up care, return to the Emergency Department. Specific signs to look out for: return to the emergency room for pain moving to the right lower side, fever ( temperature greater than 100.5) or worsening pain or any concerns that she getting worse. Any other instructions: Plenty of fluids, take the medicines as prescribed, Prescriptions: Ondansetron HCl [Zofran 4 mg Tablet] 1 - 2 tab PO Q4H PRN #10 tablet PRN Reason: Oxycodone HCl/Acetaminophen [Percocet 5-325 mg Tablet] 1 - 2 tab PO ASDIR PRN # 25 tablet PRN Reason: Tamsulosin HCl [Flomax 0.4 mg Cap.sr] 0.4 mg PO DAILY #7 cap.sr.24h Forms: Return to Work Referrals: LISBETH GIRARD MD [Primary Care Provider] - Follow up tomorrow
[2017-07-27] MEDS ORDERED: OXYCODONE-ACETAMINOPHEN 5-325 MG TABLET PO ONE (13:10)
[2017-07-27 13:46] LABS: APPEARANCE,URINE CLEAR; BILIRUBIN,URINE NEGATIVE (NEGATIVE); COLOR,URINE YELLOW; GLUCOSE, URINE NEGATIVE (NEGATIVE); KETONES,URINE NEGATIVE (NEGATIVE); LEUKOCYTE ESTERASE,URINE NEGATIVE (NEGATIVE); NITRITE,URINE NEGATIVE (NEGATIVE); PROTEIN,URINE NEGATIVE (NEGATIVE); URINE SPECIFIC GRAVITY 1.015
[2017-07-27 14:34] VITALS: BP 138/68
== END 2017-07-27 14:34 | disposition home or self-care (01) ==
LOC: ER 12:23
DX: R10.9 Unspecified abdominal pain (principal); R10.31 Right lower quadrant pain; R11.0 Nausea
CPT/HCPCS: 81001; 99284

== ENCOUNTER 2018-01-23 10:07 | Emergency (ER) | payer MEDICAID, OTHER ==
[2018-01-23 10:15] VITALS: BP 143/73
[2018-01-23] MEDS ORDERED: TAMSULOSIN HCL 0.4 MG CAP.SR.24H PO ONE (10:52)
[2018-01-23] MEDS ORDERED: OXYCODONE-ACETAMINOPHEN 5-325 MG TABLET PO ONE (10:52)
[2018-01-23] MEDS ORDERED: ONDANSETRON 4 MG TAB.RAPDIS PO ONE (10:54)
[2018-01-23 11:32] LABS: APPEARANCE,URINE CLOUDY; BILIRUBIN,URINE NEGATIVE (NEGATIVE); COLOR,URINE YELLOW; GLUCOSE, URINE NEGATIVE (NEGATIVE); KETONES,URINE NEGATIVE (NEGATIVE); LEUKOCYTE ESTERASE,URINE LARGE (NEGATIVE); NITRITE,URINE NEGATIVE (NEGATIVE); PROTEIN,URINE 30 mg/dL (NEGATIVE); URINE SPECIFIC GRAVITY 1.029; UROBILINOGEN,URINE NEGATIVE mg/dL (<2.0)
[2018-01-23 11:41] LABS: ANION GAP 10 (5-19); BLOOD UREA NITROGEN 10 mg/dL (7-20); CALCIUM 9.6 mg/dL (8.4-10.2); CARBON DIOXIDE 26 mmol/L (22-30); CHLORIDE 106 mmol/L (98-107); GLUCOSE 88 mg/dL (75-110); SODIUM 141.5 mmol/L (137-145)
--- NOTE | 2018-01-23 12:21 | RADIOLOGY REPORT (SQ) ---
EXAM DESCRIPTION: U/S RETROPERITON (RENAL/AORTA) COMPLETED DATE/TIME: 01/23/2018 12:13 pm REASON FOR STUDY: assess for hydronephrosis/obstr COMPARISON: None. TECHNIQUE: Dynamic and static grayscale images acquired of the kidneys and bladder and recorded on P ACS. Additional selected color Doppler and spectral images recorded. LIMITATIONS: None. FINDINGS: RIGHT KIDNEY: Normal size. Normal echogenicity. No solid or suspicious masses. No hydronep hrosis. No calcifications. LEFT KIDNEY: Normal size. Normal echogenicity. No solid or suspicious masses. No hydronephrosis. No calcifications. BLADDER: Empty. Not visualized. OTHER FINDINGS: No other significant finding. IMPRESSION: NORMAL RENAL ULTRASOUND. TECHNICAL DOCUMENTATION: JOB ID: [id number] [employer]- All Rights Reserved Reading location - IP/workstation name: [email or web address]
--- NOTE | 2018-01-23 12:57 | ER Document Report ---
ED General - General Chief Complaint: Flank Pain Stated Complaint: ABDOMINAL PAIN Time Seen by Provider: 01/23/18 10:32 Mode of Arrival: Ambulatory Information source: Patient, [facility] Records Notes: 27-year-old female with recurrent kidney stones presents with complaint of right flank pain that started 3 days prior to arrival. She describes the pain as a constant, aching pain with intermittent worsening stabbing pain. Patient denies any fever, chills, nausea, vomiting, dysuria, hematuria. She states her last episode of having a kidney stone was a couple of months ago. She has been seen by urology but states that every time she is evaluated the stone has already passed. She has never required surgery. Patient reports having multiple CAT scans in the past. TRAVEL OUTSIDE OF THE [place] IN LAST 30 DAYS: No - HPI Onset: Other Onset/Duration: Gradual, Persistent Quality of pain: Achy, Stabbing Severity: Mild Associated symptoms: denies: Body/muscle aches, Chest pain, Fever, Nausea, Vomiting Exacerbated by: Denies Relieved by: Denies Similar symptoms previously: Yes Recently seen / treated by doctor: No - Related Data Allergies/Adverse Reactions: aspirin [Aspirin] Allergy (Severe, Verified 07/27/17 12:28) hydrocodone bitartrate [From Vicodin] Allergy (Verified 07/27/17 12:28) Past Medical History - General Information source: Patient, [facility] Records - Social History Smoking Status: Never Smoker Frequency of alcohol use: None Drug Abuse: None Lives with: Family Family History: Arthritis, CAD, COPD, CVA, DM, Hyperlipidemia, Hypertension, Malignancy Patient has suicidal ideation: No Patient has homicidal ideation: No Renal/ Medical History: Reports: Hx Kidney Stones. Denies: Hx Peritoneal Dialysis Musculoskeletal Medical History: Reports Hx Arthritis, Reports Hx Musculoskeletal Trauma Traumatic Medical History: Reports: Hx Fractures - Nose kneecap hand and finger Past Surgical History: Reports: Hx Adenoidectomy, Hx Oral Surgery - [place] teeth , Hx Tonsillectomy - Immunizations Hx Diphtheria, Pertussis, Tetanus Vaccination: No Review of Systems - Review of Systems Notes: REVIEW OF SYSTEMS: CONSTITUTIONAL : Denies fever, chills, or sweats. Denies recent illness. Denies weight loss, recent hospitalizations. EENT: Denies visual changes, eye pain. Denies sore throat, oral lesions, difficulty swallowing. CARDIOVASCULAR: Denies chest pain. Denies palpitations. Denies lower extremity edema. RESPIRATORY: Denies cough. Denies shortness of breath, wheezing. GASTROINTESTINAL: Denies abdominal pain or distention. Denies nausea, vomiting , or diarrhea. Denies blood in vomitus, stools, or per rectum. Denies black, tarry stools. Denies constipation. GENITOURINARY: Denies difficulty urinating, painful urination, frequency, blood in urine, or vaginal discharge. MUSCULOSKELETAL: Denies neck pain or stiffness. Denies joint pain or swelling. SKIN: Denies rash, lesions or sores. HEMATOLOGIC : Denies easy bruising or bleeding. LYMPHATIC: Denies swollen glands. NEUROLOGICAL: Denies confusion or altered mental status. Denies loss of consciousness. Denies dizziness or lightheadedness. Denies headache. Denies weakness or paralysis. Denies problems difficulty with ambulation, slurred speech. Denies sensory loss, numbness, or tingling. Denies seizures. PSYCHIATRIC: Denies anxiety or stress. Denies depression, suicidal ideation, or homicidal ideation. Denies visual or auditory hallucinations. Physical Exam - Vital signs Vitals: Temp Pulse Resp BP Pulse Ox 97.4 F 98 18 143/73 H 97 01/23/18 10:13 01/23/18 10:13 01/23/18 10:13 01/23/18 10:13 01/23/18 10:13 Interpretation: Hypertensive. No: Tachycardic, Hypoxic, Febrile - Notes Notes: PHYSICAL EXAMINATION: GENERAL: Well-appearing, well-nourished and in no acute distress. HEAD: Atraumatic, normocephalic. EYES: Pupils equal round and reactive to light, extraocular movements intact, conjunctiva are normal. ENT: Nares patent, oropharynx clear without exudates. Moist mucous membranes. NECK: Normal range of motion, supple without lymphadenopathy LUNGS: Breath sounds clear to auscultation bilaterally and equal. No wheezes rales or rhonchi. HEART: Regular rate and rhythm without murmurs ABDOMEN: Soft, nontender, nondistended abdomen. No guarding, no rebound. No masses appreciated. Right CVA tenderness Female : deferred Musculoskeletal: Normal range of motion, no pitting or edema. No cyanosis. NEUROLOGICAL: Cranial nerves grossly intact. Normal speech, normal gait. Normal sensory, motor exams PSYCH: Normal mood, normal affect. SKIN: Warm, Dry, normal turgor, no rashes or lesions noted. Course - Re-evaluation Re-evalutation: Laboratory 01/23/18 01/23/18 11:05 11:05 Sodium 141.5 Potassium 4.0 Chloride 106 Carbon Dioxide 26 Anion Gap 10 BUN 10 Creatinine 0.68 Est GFR ( Amer) > 60 Est GFR (Non-Af Amer) > 60 Glucose 88 Calcium 9.6 Urine Color YELLOW Urine Appearance CLOUDY Urine pH 5.0 Ur Specific Superior 1.029 Urine Protein 30 H Urine Glucose (UA) NEGATIVE Urine Ketones NEGATIVE Urine Blood NEGATIVE Urine Nitrite NEGATIVE Urine Bilirubin NEGATIVE Urine Urobilinogen NEGATIVE Ur Leukocyte Esterase LARGE H Urine WBC (Auto) 152 Urine RBC (Auto) 9 Urine Bacteria (Auto) 1+ Squamous Epi Cells Auto 12 U Non-Squamous Epis Auto 7 Urine Mucus (Auto) MANY Urine Ascorbic Acid 20 H Renal Ultrasound 01/23/18 11:48 IMPRESSION: NORMAL RENAL ULTRASOUND. 01/23/18 16:03 27-year-old female with history of recurrent stones presents with complaint of right flank pain. Pain has been persistent for 4 days. She denies any associated nausea, vomiting, fever, dysuria, hematuria. Upon arrival vitals reviewed and within normal limits. Patient is afebrile, has a normal heart rate and is not hypoxic. Patient does not appear toxic or dehydrated. Previous medical records were reviewed. Patient agreeable with urinalysis and BMP to assess for the possibility of an infected stone. We did discuss that she has had multiple CAT scans and she agrees that she would like to avoid another one if possible. Urinalysis is consistent with infection although shows no blood. I did discuss this finding with the patient and we have decided to obtain a renal ultrasound to assess for hydronephrosis which could indicate an obstructing stone. Patient did receive Zofran, Percocet, Flomax during her ED course. On reevaluation she states the pain has improved. BMP shows no electrolyte abnormalities and normal renal function. Ultrasound shows no evidence of hydronephrosis. Patient is very well-appearing. She was provided a copy of her ultrasound report and she states that she will follow-up with her primary care physician or urologist. Patient was urged to return if she experienced worsening pain, fever, or excessive vomiting not allowing her to complete her antibiotic course. Patient provided the opportunity to ask questions, and express concerns. Discharge instructions discussed. Patient is agreeable with discharge home. Return indications explained and discussed with the patient who displays understanding. Patient encouraged to return to the emergency department immediately with any concerns. - Vital Signs Vital signs: Temp Pulse Resp BP Pulse Ox 97.4 F 98 18 143/73 H 97 01/23/18 10:13 01/23/18 10:13 01/23/18 10:13 01/23/18 10:13 01/23/18 10:13 - Laboratory Result Diagrams: 01/23/18 11:05 Laboratory results interpreted by me: 01/23/18 11:05 Urine Protein 30 H Ur Leukocyte Esterase LARGE H Urine Ascorbic Acid 20 H - Diagnostic Test Radiology reviewed: Image reviewed, Reports reviewed Discharge - Discharge Clinical Impression: Right flank pain, Elevated blood pressure reading UTI (urinary tract infection) Qualifiers: Urinary tract infection type: site unspecified Hematuria presence: without hematuria Qualified Code(s): N39.0 - Urinary tract infection, site not specified Condition: Good Disposition: HOME, SELF-CARE Instructions: Urinary Tract Infection ([facility]) Additional Instructions: Your urine shows findings consistent with a urinary tract infection. Please take all the antibiotics as directed even if your symptoms have improved. Please follow-up with your primary care physician as needed. Return to emergency room if you develop fever >101F, persistent vomiting, become lethargic , have severe pain in your sides, or any other symptoms that are concerning to you. We have discussed CAT scan of the abdomen but we both agree since you have had multiple CAT scans in the past that it should be avoided if possible. We did obtain an ultrasound which shows no evidence of obstruction. This is reassuring. Most prescribed medications have multiple side effects. The safest thing to do is when filling your prescription please speak to your pharmacist regarding possible interactions with your normal home medications and over the counter medications such as Ibuprofen, Tylenol, Benadryl.. If you experience any symptoms that cause you discomfort or concern you should discontinue the medication immediately and return to the emergency room or call your primary care physician. You have been provided a copy of your ultrasound to show to your urologist and primary care physician. Although you do have a history of stones your ultrasound is reassuring that it is not an obstructing stone if there is one present. Please follow-up with your urologist and primary care physician to reassess improvement of urinary tract infection. Prescriptions: Cephalexin Monohydrate [Keflex 500 mg Capsule] 500 mg PO BID 5 Days #10 capsule Ondansetron [Zofran Odt 4 mg Tablet] 1 tab PO Q4H PRN #8 tab.rapdis PRN Reason: For Nausea/Vomiting Oxycodone HCl/Acetaminophen [Percocet 5-325 mg Tablet] 1 tab PO Q6H PRN #8 tab PRN Reason: Forms: Elevated Blood Pressure, Return to Work Referrals: LISBETH GIRARD MD [ACTIVE STAFF] - Follow up as needed
[2018-01-23] MEDS ORDERED: CEPHALEXIN 500 MG CAPSULE PO ONE (12:58)
== END 2018-01-23 13:17 | disposition home or self-care (01) ==
LOC: ER 10:07
DX: N39.0 Urinary tract infection, site not specified (principal); R10.9 Unspecified abdominal pain; R03.0 Elevated blood-pressure reading, without diagnosis of hypertension
CPT/HCPCS: 99284; 36415; 80048; 81001; 76770; S0119; J3490

== ENCOUNTER 2018-03-04 14:20 | Emergency (ER) | payer MEDICAID ==
[2018-03-04] MEDS ORDERED: KETOROLAC TROMETHAMINE 60 MG/2 ML SDV IM ONE (15:02)
--- NOTE | 2018-03-04 15:04 | ER Document Report ---
ED GI/ - General Chief Complaint: Flank Pain Stated Complaint: FLANK PAIN Time Seen by Provider: 03/04/18 15:01 Mode of Arrival: Ambulatory Information source: Patient Notes: History of Present Illness Time: [ ] Chief Complaint: [flank pain] [ ] History obtained from [patient] 27 years old female with a history of kidney stones, presents today with right flank pain radiating to the groin since this afternoon. Denies any hematuria or dysuria frequency or urgency. Denies any fever chills. Nauseous no vomiting. Symptoms began: [today] Onset: [gradual] Timing: [intermittent] Quality: [``pain] Intensity: [severe] Location: [flank] Migration: [none] Radiation: [none] Mechanism: [none] Aggravating factors: [none] Relieving factors: [none] Denies significant traumatic injury Denies weakness, numbness, incontinence Denies IV drug use Denies trouble with urination Review of Systems All other systems negative as reviewed. CONSTITUTIONAL No fever. EYES No eye pain. ENT No URI symptoms, No sore throat, No ear pain. CARDIOVASCULAR No chest pain, No palpitations, No edema. RESPIRATORY No Cough, No SOB, No wheezing. GASTROINTESTINAL No abdominal pain, No diarrhea, No vomiting, No constipation, No melena, No rectal bleeding. GENITOURINARY No UTI symptoms, No bleeding. MUSCULOSKELETAL + flank pain. SKIN No Rash. NEUROLOGIC No Headache, No recent seizures, No paralysis, No parathesias. Physical Exam CONSTITUTIONAL Vital signs reviewed, comfortable, Alert and oriented X 3. HEAD Atraumatic, Normal cephalic. EYES No discharge from eyes, Sclera are not injected, Extraocular muscles intact, Conjunctiva are normal. ENT Ears normal to inspection, Nose examination normal, Oropharynx normal, Mucous membranes pink, moist, normal in color. NECK Normal ROM, No jugular venous distention, No meningeal signs, No carotid bruit. RESPIRATORY/CHEST Chest is non-tender, Breath sounds normal, No respiratory distress. CARDIOVASCULAR RRR, Heart sounds normal. ABDOMEN Abdomen is non-tender, No masses, Bowel sounds normal, No distension, No peritoneal signs. BACK Normal inspection. no focal bony tenderness, no CVA tenderness, no soft tissue tenderness, negative straight leg test bilaterally, bilateral 2+ knee deep tendon reflexes. UPPER EXTREMITY Inspection normal, No cyanosis/clubbing/edema, 2+ radial pulses. LOWER EXTREMITY Inspection normal, No cyanosis/clubbing/edema, 2+ femoral pulses. NEURO Motor exam normal, Sensory exam normal. SKIN Skin is warm and dry, No rash. PSYCHIATRIC Normal affect. TRAVEL OUTSIDE OF THE [place] IN LAST 30 DAYS: No - HPI Notes: 03/04/18 15:04 Dictated - Related Data Allergies/Adverse Reactions: aspirin [Aspirin] Allergy (Severe, Verified 03/04/18 14:22) hydrocodone bitartrate [From Vicodin] Allergy (Verified 03/04/18 14:22) Past Medical History - Social History Smoking Status: Never Smoker Frequency of alcohol use: None Drug Abuse: None Family History: Arthritis, CAD, COPD, CVA, DM, Hyperlipidemia, Hypertension, Malignancy Patient has suicidal ideation: No Patient has homicidal ideation: No Renal/ Medical History: Reports: Hx Kidney Stones. Denies: Hx Peritoneal Dialysis Musculoskeletal Medical History: Reports Hx Arthritis, Reports Hx Musculoskeletal Trauma Traumatic Medical History: Reports: Hx Fractures - Nose kneecap hand and finger Past Surgical History: Reports: Hx Adenoidectomy, Hx Oral Surgery - [place] teeth , Hx Tonsillectomy - Immunizations Hx Diphtheria, Pertussis, Tetanus Vaccination: No Review of Systems - Review of Systems Notes: Dictated Physical Exam - Vital signs Vitals: Temp Pulse Resp BP Pulse Ox 99.1 F 82 16 121/65 100 03/04/18 14:37 03/04/18 14:37 03/04/18 14:37 03/04/18 14:37 03/04/18 14:37 - Notes Notes: Dictated Course - Re-evaluation Re-evalutation: 03/04/18 17:[address] Urine drug screen shows opioid - Vital Signs Vital signs: Temp Pulse Resp BP Pulse Ox 99.1 F 82 16 121/65 100 03/04/18 14:37 03/04/18 14:37 03/04/18 14:37 03/04/18 14:37 03/04/18 14:37 - Laboratory Result Diagrams: 03/04/18 14:52 03/04/18 14:52 Discharge - Discharge Clinical Impression: Abdominal pain Qualifiers: Abdominal location: right lower quadrant Qualified Code(s): R10.31 - Right lower quadrant pain Condition: Fair Disposition: HOME, SELF-CARE Instructions: Oral Narcotic Medication ([facility]), Abdominal Pain ([facility]) Prescriptions: Ketorolac Tromethamine [Toradol 10 mg Tablet] 10 mg PO Q6HP PRN #14 tablet PRN Reason: Dicyclomine HCl [Bentyl 10 mg Capsule] 1 cap PO TID #30 cap
[2018-03-04] MEDS ORDERED: KETOROLAC TROMETHAMINE 10 MG TABLET PO ONE (15:35)
[2018-03-04 15:41] LABS: ABSOLUTE BASOPHILS # (AUTO) 0.1 10^3/uL (0.0-0.2); ABSOLUTE EOSINOPHILS # (AUTO) 0.1 10^3/uL (0.0-0.6); ABSOLUTE LYMPHOCYTES (AUTO) 2.4 10^3/uL (0.5-4.7); ABSOLUTE MONOCYTES (AUTO) 0.4 10^3/uL (0.1-1.4); ABSOLUTE NEUT (AUTO) 4.3 10^3/uL (1.7-8.2); BASOPHILS % (AUTO) 0.7 % (0-2); EOSINOPHILS % (AUTO) 1.1 % (0-6); HEMATOCRIT 38.4 % (36.0-47.0); HEMOGLOBIN 13.4 g/dL (12.0-15.5); LYMPHOCYTES % (AUTO) 33.5 % (13-45); MEAN CORPUSCULAR HEMOGLOBIN 31.7 pg (27.0-33.4); MEAN CORPUSCULAR HGB CONC 34.9 g/dL (32.0-36.0); MEAN CORPUSCULAR VOLUME 91 fl (80-97); MONOCYTES % (AUTO) 5.7 % (3-13); PLATELET COUNT 268 10^3/uL (150-450); RED BLOOD COUNT 4.24 10^6/uL (3.72-5.28); RED CELL DISTRIBUTION WIDTH 13.3 % (11.5-14.0); TOTAL CELLS COUNTED % (AUTO) 100 %; WHITE BLOOD COUNT 7.3 10^3/uL (4.0-10.5)
[2018-03-04 15:47] LABS: APPEARANCE,URINE CLEAR; BILIRUBIN,URINE NEGATIVE (NEGATIVE); COLOR,URINE YELLOW; GLUCOSE, URINE NEGATIVE (NEGATIVE); KETONES,URINE NEGATIVE (NEGATIVE); LEUKOCYTE ESTERASE,URINE NEGATIVE (NEGATIVE); NITRITE,URINE NEGATIVE (NEGATIVE); PROTEIN,URINE NEGATIVE (NEGATIVE); URINE SPECIFIC GRAVITY 1.016; UROBILINOGEN,URINE NEGATIVE mg/dL (<2.0)
[2018-03-04 16:07] LABS: URINE AMPHETAMINES SCREEN NEGATIVE; URINE BARBITURATES SCREEN NEGATIVE; URINE BENZODIAZEPINES SCREEN NEGATIVE; URINE COCAINE SCREEN NEGATIVE; URINE MARIJUANA (THC) SCREEN NEGATIVE; URINE METHADONE SCREEN NEGATIVE; URINE PHENCYCLIDINE SCREEN NEGATIVE
[2018-03-04 16:14] LABS: ALANINE AMINOTRANSFERASE 25 U/L (9-52); ALBUMIN 4.4 g/dL (3.5-5.0); ALKALINE PHOSPHATASE 70 U/L (38-126); ANION GAP 10 (5-19); ASPARTATE AMINO TRANSFERASE 21 U/L (14-36); BILIRUBIN,DIRECT 0.2 mg/dL (0.0-0.4); BILIRUBIN,TOTAL 0.6 mg/dL (0.2-1.3); BLOOD UREA NITROGEN 9 mg/dL (7-20); CALCIUM 9.7 mg/dL (8.4-10.2); CARBON DIOXIDE 27 mmol/L (22-30); CHLORIDE 104 mmol/L (98-107); GLUCOSE 85 mg/dL (75-110); LIPASE 106.5 U/L (23-300); SODIUM 141.4 mmol/L (137-145); TOTAL PROTEIN 7.3 g/dL (6.3-8.2)
[2018-03-04 17:37] VITALS: BP 128/70
== END 2018-03-04 17:38 | disposition home or self-care (01) ==
LOC: ER 14:20
DX: R10.31 Right lower quadrant pain (principal)
CPT/HCPCS: 99284; 36415; 83690; 85025; 81025; 80053; 81001; 80307; J3490

== ENCOUNTER 2018-06-24 07:55 | Emergency (ER) | payer MEDICAID ==
[2018-06-24 07:59] VITALS: BP 129/77
== END 2018-06-24 09:40 | disposition left against medical advice (07) ==
LOC: ER 07:55
DX: Z53.21 Procedure and treatment not carried out due to patient leaving prior to being seen by health care provider (principal); M54.9 Dorsalgia, unspecified

== ENCOUNTER 2018-11-25 12:29 | Emergency (ER) | payer MEDICAID ==
[2018-11-25 12:34] VITALS: BP 136/76
--- NOTE | 2018-11-25 14:35 | ER Document Report ---
ED General - General Chief Complaint: Head Injury Stated Complaint: FALL/HEAD INJURY Time Seen by Provider: 11/25/18 14:27 TRAVEL OUTSIDE OF THE [place] IN LAST 30 DAYS: No - HPI Notes: 28-year-old female to the emergency department with complaints of an episode of syncope and head injury that occurred this morning. She states that she was cooking in a friend's kitchen and got overheated as there is no ventilation. States that she went to the bathroom and splashed water on her face. She felt lightheaded and then passed out briefly. When she passed out she struck her head on the sink. Directly after the incident she felt dizziness and nauseated. She denies any leona vomiting, blurry vision, difficulty ambulating. She is with her friend and her friend denies any hypersomnolence. Patient states that the sensation of nausea has decreased since being here in the ER. She denies any neck pain, back pain, hip pain, chest pain, shortness of breath, abdominal pain. - Related Data Allergies/Adverse Reactions: aspirin [Aspirin] Allergy (Severe, Verified 06/24/18 07:57) hydrocodone bitartrate [From Vicodin] Allergy (Verified 06/24/18 07:57) Past Medical History - General Information source: Patient, Friend - Social History Smoking Status: Never Smoker Frequency of alcohol use: None Drug Abuse: None Family History: Reviewed & Not Pertinent, Arthritis, CAD, COPD, CVA, DM, Hyperlipidemia, Hypertension, Malignancy Renal/ Medical History: Reports: Hx Kidney Stones. Denies: Hx Peritoneal Dialysis Musculoskeletal Medical History: Reports Hx Arthritis, Reports Hx Musculoskeletal Trauma Traumatic Medical History: Reports: Hx Fractures - Nose kneecap hand and finger Past Surgical History: Reports: Hx Adenoidectomy, Hx Oral Surgery - [place] teeth, Hx Tonsillectomy - Immunizations Hx Diphtheria, Pertussis, Tetanus Vaccination: No Review of Systems - Review of Systems Constitutional: denies: Chills, Fever EENT: No symptoms reported Cardiovascular: Syncope, Dizziness, Lightheaded. denies: Chest pain, Palpitations, Dyspnea Respiratory: denies: Cough, Short of breath Gastrointestinal: Nausea. denies: Abdominal pain, Diarrhea, Vomiting Genitourinary: No symptoms reported Female Genitourinary: No symptoms reported Musculoskeletal: denies: Back pain, Joint swelling, Muscle pain, Neck pain, Leg swelling Skin: No symptoms reported Neurological/Psychological: Headaches -: Yes All other systems reviewed and negative Physical Exam - Vital signs Vitals: Temp Pulse Resp BP Pulse Ox 98.2 F 84 18 136/76 H 97 11/25/18 12:33 11/25/18 12:33 11/25/18 12:33 11/25/18 12:33 11/25/18 12:33 Interpretation: Normal - General General appearance: Appears well In distress: None - HEENT Head: Ecchymosis, Other - There is involving ecchymotic region to the right upper forehead. There is no associated laceration and no associated step-off or crepitus.. No: Mo's sign, [place]'s eyes Eyes: Normal Conjunctiva: Normal Pupils: PERRL Fundascopic: Normal Ears: Normal External canal: Normal Tympanic membrane: Normal Nasal: Normal Mouth/Lips: Normal Mucous membranes: Normal Pharynx: Normal Neck: Normal - Respiratory Respiratory status: No respiratory distress Chest status: Nontender Breath sounds: Normal Chest palpation: Normal - Cardiovascular Rhythm: Regular Heart sounds: Normal auscultation Murmur: No - Abdominal Inspection: Normal Distension: No distension Bowel sounds: Normal Tenderness: Nontender Organomegaly: No organomegaly - Back Back: Normal. No: Tender, Deformity/step-off, CVA tenderness, Vertebra tenderness - Extremities General upper extremity: Normal inspection - Ambulates without difficulty, Nontender, Normal color, Normal ROM, Normal temperature General lower extremity: Normal inspection, Nontender, Normal color, Normal ROM, Normal temperature, Normal weight bearing. No: Raquel's sign - Neurological Neuro grossly intact: Yes Cognition: Normal Orientation: AAOx4 Su Coma Scale Eye Opening: Spontaneous [place] Coma Scale Verbal: Oriented Su Coma Scale Motor: Obeys Commands Su Coma Scale Total: 15 Speech: Normal. No: Dysarthria Cranial nerves: Normal. No: Facial palsy, Forehead sparing, Gaze palsy, Sensory deficit, Tongue deviation Cerebellar coordination: Normal - Normal anger to nose bilaterally as well as normal [id number] bilaterally. No leg drift Motor strength normal: LUE, RUE, LLE, RLE Additional motor exam normals: Equal supervisor process testing. No: Dorsiflexion, Involuntary movements, Plantar flexion, Pronator drift, Weakness, Hemiplegia Sensory: Normal - Psychological Associated symptoms: Normal affect, Normal mood - Skin Skin Temperature: Warm Skin Moisture: Dry Skin Color: Normal Course - Re-evaluation Re-evalutation: 11/25/18 14:34 Patient will not stay for further imaging, lab work. 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 I have advised that I would like for her to get head CT as well as EKG and lab work given her syncopal episode. Advised concern for closed head injury. Despite our conversation she still asked to leave. I have discussed with her the risk and benefit of staying for further evaluation to include further testing to seek out etiology of her syncopal episode, evaluation for her intercranial injury. I have discussed with her that the risk of leaving could include recurrent syncopal episodes, worsening symptoms, seizures, prolonged hospitalization, and or . She voices understanding and has good insight. Friend who is bedside also agrees. We had her sign an AGAINST MEDICAL ADVICE form. Have encouraged her to return at any time for further testing. - Vital Signs Vital signs: Temp Pulse Resp BP Pulse Ox 98.2 F 84 18 136/76 H 97 11/25/18 12:33 11/25/18 12:33 11/25/18 12:33 11/25/18 12:33 11/25/18 12:33 Discharge - Discharge Clinical Impression: Fall, Head injury, Syncope Disposition: AGAINST MEDICAL ADVICE
== END 2018-11-25 14:42 | disposition left against medical advice (07) ==
LOC: ER 12:29
DX: S09.90XA Unspecified injury of head, initial encounter (principal); R11.0 Nausea; R55 Syncope and collapse; W18.30XA Fall on same level, unspecified, initial encounter; Z87.442 Personal history of urinary calculi; Z88.6 Allergy status to analgesic agent
CPT/HCPCS: 99283